=== PATIENT | female | born 1955 | race Caucasian/White ===

== ENCOUNTER 2017-01-20 04:04 | Emergency (ER) | payer MEDICAID ==
[~2017-01-20 04:04] MED LIST: CITA10TA17
--- NOTE | 2017-01-20 04:45 | NUR ---
CALLED FOR TRIAGE; INFORMED "LADY STEPPED OUT"
--- NOTE | 2017-01-20 05:13 | NUR ---
NOT IN LOBBY.
--- NOTE | 2017-01-20 05:29 | NUR ---
STILL NOT IN LOBBY FOR TRIAGE.
== END 2017-01-20 05:30 | disposition left against medical advice (07) ==
LOC: ER 04:05
DX: Z53.21 Procedure and treatment not carried out due to patient leaving prior to being seen by health care provider (principal)

== ENCOUNTER 2017-05-29 05:01 | Emergency (ER) | payer MEDICAID ==
[~2017-05-29] VITALS: Ht 170.2 cm; Wt 79.4 kg
--- NOTE | 2017-05-29 05:08 | NUR ---
CALLED PT NAME X 3 IN WAITING ROOM. NO RESPONSE.
--- NOTE | 2017-05-29 05:25 | NUR ---
CALLED PT NAME IN WR X 3. NO RESPONSE.
--- NOTE | 2017-05-29 05:45 | NUR ---
CALLED PT NAME X3. NO RESPONSE. PT NOTED SLEEPING, STATES SHE WANTS TO REST FOR A FEW MINUTES. RISK AND BENEFITS EXPLAINED X3.
--- NOTE | 2017-05-29 06:00 | NUR ---
TO BED 8 A 62 YO FEMALE PT BIBSELF C/O "VAGINAL PAIN FOR A FEW WEEK, POSION INSIDE ME." DENIES BLEEDING. PATIENT ALERT, WALKING WITH STEADY GAIT. VSS. NAD NOTED. COMFORT MEASURES RENDERED.
--- NOTE | 2017-05-29 06:04 | NUR ---
DR CASE AT BEDSIDE.
--- NOTE | 2017-05-29 06:10 | NUR ---
PATIENT APPEARS ANXIOUS, WITH DELUSIONS.
[2017-05-29] MEDS ORDERED: ZIPRASIDONE MESYLATE 20 MG/VIAL VIAL IM ONE ×2 (06:19→06:30)
[2017-05-29] MEDS ORDERED: WATER FOR INJECTION,STERILE 10 ML ONE (06:20)
[2017-05-29 06:34] LABS: BASOPHILS % (AUTO) 0.7 % (0.0-2.0); EOSINOPHILS # (AUTO) 0.2 /CMM (0.0-0.7); EOSINOPHILS % (AUTO) 4.4 % (0.0-6.0); HEMATOCRIT 43 % (33-45); HEMOGLOBIN 14.5 g/dL (11.5-14.8); LYMPHOCYTES # (AUTO) 1.4 /CMM (0.8-4.8); MEAN CORPUSCULAR HEMOGLOBIN 31 PG (26.0-33.0); MEAN CORPUSCULAR HGB CONC 34 g/dl (31.0-36.0); MEAN CORPUSCULAR VOLUME 91 fL (82-100); MONOCYTES # (AUTO) 0.5 /CMM (0.1-1.30); MONOCYTES % (AUTO) 8.6 % (2.0-12.0); NEUTROPHILS # (AUTO) 3.4 /CMM (1.8-8.9); NEUTROPHILS % (AUTO) 61.3 % (43.0-81.0); PLATELET COUNT (AUTO) 193 /CMM (150-450); RDW COEFFICIENT OF VARIATION 12.7 (11.5-15.0); RED BLOOD CELL COUNT(AUTO) 4.71 MIL/uL (4.0-5.2); WHITE BLOOD COUNT (AUTO) 5.6 K/uL (4.3-11.0)
[2017-05-29 06:34] LABS: APPEARANCE,URINE CLEAR (CLEAR); BILIRUBIN,URINE NEGATIVE (NEGATIVE); BLOOD, URINE TRACE-INTA Ery/uL (NEGATIVE); COLOR,URINE YELLOW (YELLOW); KETONES,URINE NEGATIVE (NEGATIVE); LEUKOCYTE ESTERASE ,URINE NEGATIVE (NEGATIVE); NITRITE, URINE NEGATIVE (NEGATIVE); PROTEIN,URINE NEGATIVE (NEGATIVE); UGLUCOSE 3+ mg/dL (NEGATIVE); UROBILINOGEN,URINE 0.2 EU/dL (0.2)
[2017-05-29] MEDS ORDERED: ESCITALOPRAM OXALATE (10 MG) 10 MG TABLET ONE (06:35)
[2017-05-29 06:36] LABS: BACTERIA,URINE Few /HPF (None Seen); WBC,URINE 0-2 /HPF (0-3)
--- NOTE | 2017-05-29 06:42 | NUR ---
MEDICATED PATIENT ORDERED BY DR CASE.
[2017-05-29 07:00] LABS: ALANINE AMINOTRANSFERASE 35 U/L (12-78); ALBUMIN 3.8 g/dL (3.4-5.0); ALKALINE PHOSPHATASE 88 U/L (46-116); ASPARTATE AMINOTRANSFERASE 17 U/L (15-37); BILIRUBIN,DIRECT 0.1 mg/dL (0.0-0.2); BILIRUBIN,TOTAL 0.5 mg/dL (0.2-1.0); CALCIUM, SERUM 8.4 mg/dL (8.5-10.1); CARBON DIOXIDE 30 mmol/L (21-32); CHLORIDE 101 mmol/L (98-107); CREATININE 0.9 mg/dL (0.6-1.3); POTASSIUM 3.8 mmol/L (3.5-5.1); SODIUM SERUM 139 mmol/L (136-145); TOTAL PROTEIN, SERUM 7.6 g/dL (6.4-8.2); UREA NITROGEN, BLOOD 12 mg/dL (7-18)
[2017-05-29] MEDS ORDERED: ESCITALOPRAM OXALATE (10 MG) 10 MG TABLET PO ONE (07:00)
[2017-05-29 07:04] LABS: ACETAMINOPHEN 0 ug/ml (10-30); GLUCOSE 421 mg/dL (74-106); SALICYLATE 1.6 mg/dL (2.8-20.0)
[2017-05-29 07:05] LABS: ALCOHOL, BLOOD < 3 mg/dL (0-0)
[2017-05-29] MEDS ORDERED: INSULIN REGULAR, HUMAN 100 UNIT/ML 10 ML VIAL ONE (07:13)
--- NOTE | 2017-05-29 07:17 | NUR ---
WITNESSED/VERIFIED WITH RN DANIELLA MEDICATION REGULAR INSULIN 8UNITS IVP
[2017-05-29] MEDS ORDERED: INSULIN REGULAR, HUMAN 100 UNIT/ML 10 ML VIAL IV ONE ×2 (07:30→09:30)
[2017-05-29] MEDS ORDERED: IV NS 0.9% 1,000 ML BAG IV ONE (07:30)
[2017-05-29] MEDS ORDERED: FLUCONAZOLE (100 MG) 100 MG TABLET PO ONE (07:30)
--- NOTE | 2017-05-29 08:08 | NUR ---
ARABELLA ETA 60
--- NOTE | 2017-05-29 08:15 | NUR ---
PROVIDED WITH DIABETIC MEAL TRAY AT THIS TIME. NAD NOTED. AMBULATORY WITH STEADY GAIT.
[2017-05-29] MEDS ORDERED: FLUCONAZOLE (100 MG) 100 MG TABLET ONE (08:20)
--- NOTE | 2017-05-29 09:18 | NUR ---
PINKY AT BEDSIDE
--- NOTE | 2017-05-29 09:22 | NUR ---
RECHECK DUN=458. MD NOTIFIED. AWAITING NEW ORDER.
--- NOTE | 2017-05-29 10:27 | NUR ---
IV removed. Catheter intact and site benign. Pressure and 4x4 applied to site. No bleeding noted.
--- NOTE | 2017-05-29 10:50 | NUR ---
Patient discharged to home in stable condition. Written and verbal after care instructions given. Patient verbalizes understanding of instruction. RECHECK HDK=551. THOROUGH BLOOD SUGAR MANAGEMENT INFORMATION GIVEN INCLUDING PROPER USE OF PRESCRIBED METFORMIN.
[2017-05-29 11:26] VITALS: BP 153/88
== END 2017-05-29 10:50 | disposition home or self-care (01) ==
LOC: ER 05:02
DX: F22 Delusional disorders (principal); E11.65 Type 2 diabetes mellitus with hyperglycemia; B37.3 Candidiasis of vulva and vagina; F20.9 Schizophrenia, unspecified; F17.200 Nicotine dependence, unspecified, uncomplicated; Z91.19 Patient's noncompliance with other medical treatment and regimen; Z88.8 Allergy status to other drugs, medicaments and biological substances; Z59.0 Homelessness
CPT/HCPCS: 36415; 71010; 80048; 80076; 80305; 80329; 81001; 82962 ×3; 85025; 96361; 96372; 96374; 96376; 99285; A4606; G0480 ×2; J1815; J3486; J7030; Z7610; 81000-TC

== ENCOUNTER 2017-07-20 15:59 | Emergency (ER) | payer MEDICAID ==
[~2017-07-20] VITALS: Ht 167.6 cm; Wt 77.1 kg
--- NOTE | 2017-07-20 15:59 | NUR ---
ABRASION TO THE FACE AND BILATERAL KNEE MORE ON THE LEFT S/P GLF X 3 DAYS
[2017-07-20] MEDS ORDERED: IBUPROFEN 600 MG TABLET PO ONE ×2 (16:22→16:30)
[2017-07-20] MEDS ORDERED: TDAP [DIPH/PERTUSSIS/TET] 0.5 ML VIAL IM ONE ×2 (16:23→16:30)
--- NOTE | 2017-07-20 16:27 | NUR ---
PT TAKEN TO CT
--- NOTE | 2017-07-20 17:12 | NUR ---
Patient discharged to home in stable condition. Written and verbal after care instructions given. Patient verbalizes understanding of instruction.
[2017-07-20 17:14] VITALS: BP 140/87
== END 2017-07-20 17:14 | disposition home or self-care (01) ==
LOC: ER 16:01
DX: S00.83XA Contusion of other part of head, initial encounter (principal); S80.02XA Contusion of left knee, initial encounter; S00.31XA Abrasion of nose, initial encounter; F20.9 Schizophrenia, unspecified; E11.9 Type 2 diabetes mellitus without complications; F17.200 Nicotine dependence, unspecified, uncomplicated; Z59.0 Homelessness; Z88.8 Allergy status to other drugs, medicaments and biological substances; W01.10XA Fall on same level from slipping, tripping and stumbling with subsequent striking against unspecified object, initial encounter; Y93.89 Activity, other specified; Y92.89 Other specified places as the place of occurrence of the external cause; Y99.8 Other external cause status
CPT/HCPCS: 70486; 73564; 90471; 90715; 99284; A4606; Z7610

== ENCOUNTER 2018-07-12 00:46 | Emergency (ER) | payer BC, MEDICAID ==
[~2018-07-12] VITALS: Ht 170.2 cm; Wt 68.0 kg
--- NOTE | 2018-07-12 01:00 | NUR ---
PT BIBSELF FROM STREETS COMPLAINING OF CHRONIC BILATERAL LOWER EXTREMITY PAIN. PT DENIES RECENT TRAUMA. NOTED EDEMA BILATERAL LOWER EXTREMITIES, PT STATES DOES NOT DIFFER. PT AAOX4. RESPIRATIONS EVEN AND UNLABORED. SKIN WARM AND INTACT. NO ACUTE DISTRESS NOTED AT THIS TIME. PT PLACED IN GOWN AND ON MONITOR.
--- NOTE | 2018-07-12 01:25 | NUR ---
LAB AT BEDSIDE FOR BLOOD DRAW
[2018-07-12] MEDS ORDERED: OLANZAPINE 5 MG TABLET ONE (01:28)
[2018-07-12] MEDS ORDERED: oxyCODONE/APAP (5/325 MG) 1 UDTAB TABLET ONE (01:28)
[2018-07-12] MEDS ORDERED: LORAZEPAM 1 MG TABLET ONE (01:28)
[2018-07-12] MEDS: LORAZEPAM 1 MG TABLET PO ONE (01:35)
[2018-07-12] MEDS: oxyCODONE/APAP (5/325 MG) 1 UDTAB TABLET PO ONE (01:36)
[2018-07-12] MEDS: OLANZAPINE 5 MG TABLET PO ONE (01:36)
[2018-07-12 01:39] LABS: BASOPHILS % (AUTO) 0.4 % (0.0-2.0); HEMATOCRIT 36 % (33-45); HEMOGLOBIN 11.6 g/dL (11.5-14.8); LYMPHOCYTES # (AUTO) 0.9 /CMM (0.8-4.8); LYMPHOCYTES % (AUTO) 11.1 % (20.0-44.0); MEAN CORPUSCULAR HGB CONC 32 g/dl (31.0-36.0); MEAN CORPUSCULAR VOLUME 84 fL (82-100); MONOCYTES # (AUTO) 0.4 /CMM (0.1-1.30); MONOCYTES % (AUTO) 5.5 % (2.0-12.0); NEUTROPHILS # (AUTO) 6.2 /CMM (1.8-8.9); PLATELET COUNT (AUTO) 321 /CMM (150-450); RDW COEFFICIENT OF VARIATION 17.2 (11.5-15.0); RED BLOOD CELL COUNT(AUTO) 4.27 MIL/uL (4.0-5.2); WHITE BLOOD COUNT (AUTO) 7.7 K/uL (4.3-11.0)
--- NOTE | 2018-07-12 01:50 | NUR ---
URINE COLLECTED. CALLED LAB FOR TECHNICAL SUPPORT AGENT
[2018-07-12 01:52] LABS: CALCIUM, SERUM 8.5 mg/dL (8.5-10.1); CARBON DIOXIDE 30 mmol/L (21-32); CHLORIDE 98 mmol/L (98-107); CREATININE 0.7 mg/dL (0.6-1.3); GLUCOSE 245 mg/dL (74-106); LIPASE 283 U/L (73-393); POTASSIUM 3.3 mmol/L (3.5-5.1); SODIUM SERUM 134 mmol/L (136-145); UREA NITROGEN, BLOOD 13 mg/dL (7-18)
[2018-07-12 01:53] LABS: ALCOHOL, BLOOD < 3 mg/dL (0-0)
[2018-07-12 01:55] LABS: INR 0.97 (0.87-1.13)
--- NOTE | 2018-07-12 01:55 | NUR ---
RADIOLOGY AT BEDSIDE FOR XRAY
[2018-07-12 01:59] LABS: TROPONIN I < 0.017 ng/mL (0.00-0.056)
[2018-07-12 02:05] LABS: ALANINE AMINOTRANSFERASE 13 U/L (12-78); ALBUMIN 3.1 g/dL (3.4-5.0); ALKALINE PHOSPHATASE 60 U/L (46-116); ASPARTATE AMINOTRANSFERASE 17 U/L (15-37); B-TYPE NATRIURETIC PEPTIDE 137 PG/ML (0-125); BILIRUBIN,DIRECT 0.1 mg/dL (0.0-0.2); BILIRUBIN,TOTAL 0.4 mg/dL (0.2-1.0); THYROID STIMULATING HORMONE 3.151 uIU/mL (0.358-3.74); TOTAL PROTEIN, SERUM 8.2 g/dL (6.4-8.2)
[2018-07-12 02:16] LABS: BILIRUBIN,URINE NEGATIVE (NEGATIVE); BLOOD, URINE NEGATIVE Ery/uL (NEGATIVE); COLOR,URINE YELLOW (YELLOW); KETONES,URINE NEGATIVE (NEGATIVE); LEUKOCYTE ESTERASE ,URINE NEGATIVE (NEGATIVE); NITRITE, URINE NEGATIVE (NEGATIVE); PH,URINE 7.5 (5.0-8.0); PROTEIN,URINE NEGATIVE (NEGATIVE); UGLUCOSE 2+ mg/dL (NEGATIVE); UROBILINOGEN,URINE 0.2 EU/dL (0.2)
[2018-07-12 02:17] LABS: APPEARANCE,URINE HAZY (CLEAR)
--- NOTE | 2018-07-12 02:17 | NUR ---
ULTRASOUND AT BEDSIDE
[2018-07-12 02:26] LABS: BACTERIA,URINE None seen /HPF (None Seen); RBC,URINE 0-2 /HPF (0-2); SQUAMOUS EPITHELIAL CELL,UR Few /HPF (None Seen); WBC,URINE 0-2 /HPF (0-3)
--- NOTE | 2018-07-12 02:43 | NUR ---
PT ABLE TO AMBULATE TO RESTROOM WITH ASSISTANCE
--- NOTE | 2018-07-12 03:26 | NUR ---
Patient discharged to home in stable condition. Written and verbal after care instructions given. Patient verbalizes understanding of instruction. Pt ambulatory with a steady gait
[2018-07-12 03:27] VITALS: BP 157/72
== END 2018-07-12 03:28 | disposition home or self-care (01) ==
LOC: ER 00:46
DX: G89.29 Other chronic pain (principal); M79.662 Pain in left lower leg; M79.661 Pain in right lower leg; R60.9 Edema, unspecified; F20.9 Schizophrenia, unspecified; E11.9 Type 2 diabetes mellitus without complications; F17.200 Nicotine dependence, unspecified, uncomplicated; Z88.8 Allergy status to other drugs, medicaments and biological substances; Z59.0 Homelessness
CPT/HCPCS: 36415; 71045; 73590 ×2; 73620 ×2; 80048; 80076; 80305; 81001; 83690; 83880; 84443; 84484; 85025; 85730; 93005; 93970; 99285; 99406; A4606; G0480; Z7610; 81000-TC

== ENCOUNTER 2018-09-24 05:44 | Emergency (ER) | payer BC ==
[~2018-09-24] VITALS: Ht 170.2 cm; Wt 75.7 kg
--- NOTE | 2018-09-24 05:50 | NUR ---
PT BIBSELF FROM STREETS C/O GENERALIZED PAIN X5 DAYS. PT DENIES TRAUMA. PT AAOX3. RESPIRATIONS EVEN AND UNLABORED. VITAL SIGNS STABLE. PT AMBULATORY TO ER BED 13. WILL CONTINUE TO MONITOR.
[2018-09-24] MEDS ORDERED: HYDROCODONE/APAP 5/325MG 1 EACH TABLET ONE (06:25)
[2018-09-24] MEDS ORDERED: IBUPROFEN 600 MG TABLET PO ONE ×2 (06:30→07:00)
[2018-09-24] MEDS ORDERED: HYDROCODONE/APAP 5/325MG 1 EACH TABLET PO ONE (06:30)
--- NOTE | 2018-09-24 06:32 | NUR ---
PER VERBAL MD ORDER, ADMINISTERED IBUPROFEN 600MG PO X1 NOW
[2018-09-24 06:42] VITALS: BP 148/82
== END 2018-09-24 06:42 | disposition home or self-care (01) ==
LOC: ER 05:46
DX: G89.29 Other chronic pain (principal); R60.0 Localized edema; F20.9 Schizophrenia, unspecified; E11.9 Type 2 diabetes mellitus without complications; F17.200 Nicotine dependence, unspecified, uncomplicated; Z59.0 Homelessness; Z88.8 Allergy status to other drugs, medicaments and biological substances; Z79.899 Other long term (current) drug therapy
CPT/HCPCS: A4606; Z7610

== ENCOUNTER 2018-10-15 05:01 | Emergency (ER) | payer BC ==
[~2018-10-15] VITALS: Ht 167.6 cm; Wt 75.7 kg
[2018-10-15 06:12] VITALS: BP 165/78
== END 2018-10-15 07:10 | disposition home or self-care (01) ==
LOC: ER 05:02
DX: R05 Cough (principal); R09.81 Nasal congestion; R09.3 Abnormal sputum; E11.9 Type 2 diabetes mellitus without complications; F20.9 Schizophrenia, unspecified; F17.200 Nicotine dependence, unspecified, uncomplicated; Z88.8 Allergy status to other drugs, medicaments and biological substances; Z59.0 Homelessness; Z79.899 Other long term (current) drug therapy
CPT/HCPCS: 99283; A4606; Z7610

== ENCOUNTER 2019-02-02 13:48 | Emergency (ER) | payer BC ==
[~2019-02-02] VITALS: Ht 165.1 cm; Wt 65.8 kg
[2019-02-02] MEDS ORDERED: DOCU-141 PO (14:18)
[2019-02-02] MEDS ORDERED: DULO60CA45 PO (14:18)
[2019-02-02] MEDS ORDERED: HYDR-4384 PO (14:18)
[2019-02-02] MEDS ORDERED: ACET-868 PO (14:18)
[2019-02-02] MEDS ORDERED: BISA5TAB10 PO (14:18)
--- NOTE | 2019-02-02 14:30 | NUR ---
patient presented to the ER from [facility] for psych eval, visual hallucination. On room air, breathing evenly and unlabored. kept comfortable, will continue to monitor accordingly.
--- NOTE | 2019-02-02 14:41 | NUR ---
urine collected and sent to lab.
[2019-02-02 14:48] LABS: BASOPHILS # (AUTO) 0.1 /CMM (0.0-0.2); BASOPHILS % (AUTO) 1.1 % (0.0-2.0); EOSINOPHILS % (AUTO) 2.4 % (0.0-6.0); HEMATOCRIT 42 % (33-45); LYMPHOCYTES % (AUTO) 16.8 % (20.0-44.0); MEAN CORPUSCULAR HGB CONC 34 g/dl (31.0-36.0); MEAN CORPUSCULAR VOLUME 86 fL (82-100); MONOCYTES # (AUTO) 0.5 /CMM (0.1-1.30); MONOCYTES % (AUTO) 7.7 % (2.0-12.0); NEUTROPHILS # (AUTO) 4.4 /CMM (1.8-8.9); PLATELET COUNT (AUTO) 245 /CMM (150-450); RED BLOOD CELL COUNT(AUTO) 4.86 MIL/uL (4.0-5.2); WHITE BLOOD COUNT (AUTO) 6.1 K/uL (4.3-11.0)
[2019-02-02 14:59] LABS: ALANINE AMINOTRANSFERASE 19 U/L (12-78); ALCOHOL, BLOOD < 3 mg/dL (0-0); ALKALINE PHOSPHATASE 85 U/L (46-116); ASPARTATE AMINOTRANSFERASE 18 U/L (15-37); BILIRUBIN,DIRECT 0.1 mg/dL (0.0-0.2); BILIRUBIN,TOTAL 0.4 mg/dL (0.2-1.0); CALCIUM, SERUM 8.8 mg/dL (8.5-10.1); CARBON DIOXIDE 33 mmol/L (21-32); CHLORIDE 102 mmol/L (98-107); CREATININE 0.8 mg/dL (0.6-1.3); GLUCOSE 166 mg/dL (74-106); POTASSIUM 4.1 mmol/L (3.5-5.1); SODIUM SERUM 141 mmol/L (136-145); TOTAL PROTEIN, SERUM 8.4 g/dL (6.4-8.2); UREA NITROGEN, BLOOD 15 mg/dL (7-18)
[2019-02-02 15:09] LABS: ACETAMINOPHEN < 2 ug/ml (10-30); SALICYLATE < 2.8 mg/dL (2.8-20.0)
[2019-02-02 15:11] LABS: APPEARANCE,URINE Clear (CLEAR); BILIRUBIN,URINE Negative (NEGATIVE); BLOOD, URINE Trace-intact Ery/uL (NEGATIVE); COLOR,URINE Yellow (YELLOW); KETONES,URINE Negative (NEGATIVE); LEUKOCYTE ESTERASE ,URINE Negative (NEGATIVE); NITRITE, URINE Negative (NEGATIVE); PH,URINE 5.5 (5.0-8.0); PROTEIN,URINE 30 mg/dl (NEGATIVE); UGLUCOSE Negative (NEGATIVE); UROBILINOGEN,URINE 0.2 EU/dL (0.2)
[2019-02-02 15:24] LABS: BACTERIA,URINE None seen /HPF (None Seen); SQUAMOUS EPITHELIAL CELL,UR Few /HPF (None Seen); WBC,URINE 0-2 /HPF (0-3)
--- NOTE | 2019-02-02 15:39 | NUR ---
ADJUNCT ART HISTORY INSTRUCTOR ALEX ETA 1 HR
--- NOTE | 2019-02-02 17:10 | NUR ---
ETA [phone] [facility] [id number]
--- NOTE | 2019-02-02 17:38 | NUR ---
called [facility]o espinoza and spoke to Nely BLACKMAN and report given.
[2019-02-02 17:54] VITALS: BP 116/82
--- NOTE | 2019-02-02 17:57 | NUR ---
patient pickep up via ambulance going to [facility] [place]. Per crisis team, patient does not meet criteria for admission. On room air, in no apparent distress noted. denies any pain at this time.
== END 2019-02-02 17:55 ==
LOC: ER 13:50
DX: R44.1 Visual hallucinations (principal); F60.3 Borderline personality disorder; E11.9 Type 2 diabetes mellitus without complications; F17.200 Nicotine dependence, unspecified, uncomplicated; Z88.8 Allergy status to other drugs, medicaments and biological substances
CPT/HCPCS: 36415; 80048; 80076; 80305; 80307; 80329; 81001; 85025; 99285; G0480; 81000-TC

== ENCOUNTER 2020-03-26 00:07 | Emergency (ER) | payer BC, MEDICAID ==
[~2020-03-26] VITALS: Ht 170.2 cm; Wt 91.6 kg
[~2020-03-26 00:07] MED LIST changes: +ACET-868 PO; +BISA5TAB10 PO; -CITA10TA17; +DOCU-141 PO; +DULO60CA45 PO; +HYDR-4384 PO
--- NOTE | 2020-03-26 00:40 | NUR ---
BIBS FOR C/O CHRONIC BILATERAL GROIN PAIN TO ER BED 7 AWAITING MD NAVA
[2020-03-26] MEDS ORDERED: IBUPROFEN 600 MG TABLET PO ONE ×2 (01:16→01:30)
[2020-03-26 01:38] VITALS: BP 143/83
--- NOTE | 2020-03-26 01:38 | NUR ---
Patient discharged to home in stable condition. Written and verbal after care instructions given. Patient verbalizes understanding of instruction.
== END 2020-03-26 01:39 | disposition home or self-care (01) ==
LOC: ER 00:12
DX: G89.29 Other chronic pain (principal); R10.31 Right lower quadrant pain; R10.32 Left lower quadrant pain; E11.9 Type 2 diabetes mellitus without complications; F20.9 Schizophrenia, unspecified; F17.200 Nicotine dependence, unspecified, uncomplicated; Z88.8 Allergy status to other drugs, medicaments and biological substances; Z79.899 Other long term (current) drug therapy

== ENCOUNTER 2020-05-01 03:23 | Emergency (ER) | payer MEDICAID ==
[~2020-05-01] VITALS: Ht 170.2 cm; Wt 91.6 kg
--- NOTE | 2020-05-01 04:15 | NUR ---
BIBS FOR C/O GENERALIZED BODY PAIN X 1WK. PT DENIED ANY FALL OR TRAUMA. REPORTED SHE' BEEN GIVEN "WRONG MEDICATIONS FOR PAIN.". DENIED SOB, DIZZINESS. PT WAS PLACED ON A MONITOR. VSS. WILL CONT TO MONITOR,
[2020-05-01] MEDS ORDERED: ACETAMINOPHEN ES 500 MG TABLET ONE (04:36)
--- NOTE | 2020-05-01 04:51 | NUR ---
BLOOD WAS DRAWN
[2020-05-01 04:55] LABS: BASOPHILS # (AUTO) 0.1 /CMM (0.0-0.2); BASOPHILS % (AUTO) 0.7 % (0.0-2.0); EOSINOPHILS % (AUTO) 2.6 % (0.0-6.0); HEMATOCRIT 37 % (33-45); HEMOGLOBIN 12.1 g/dL (11.5-14.8); LYMPHOCYTES # (AUTO) 1.1 /CMM (0.8-4.8); LYMPHOCYTES % (AUTO) 16.1 % (20.0-44.0); MEAN CORPUSCULAR HGB CONC 33 g/dl (31.0-36.0); MEAN CORPUSCULAR VOLUME 88 fL (82-100); MONOCYTES # (AUTO) 0.7 /CMM (0.1-1.30); MONOCYTES % (AUTO) 9.6 % (2.0-12.0); NEUTROPHILS # (AUTO) 5.1 /CMM (1.8-8.9); PLATELET COUNT (AUTO) 228 /CMM (150-450); WHITE BLOOD COUNT (AUTO) 7.1 K/uL (4.3-11.0)
[2020-05-01 04:57] LABS: APPEARANCE,URINE Clear (CLEAR); BILIRUBIN,URINE Negative (NEGATIVE); BLOOD, URINE Small Ery/uL (NEGATIVE); COLOR,URINE Yellow (YELLOW); KETONES,URINE Negative (NEGATIVE); LEUKOCYTE ESTERASE ,URINE Trace (NEGATIVE); NITRITE, URINE Negative (NEGATIVE); PROTEIN,URINE 30 mg/dl (NEGATIVE); UGLUCOSE Negative (NEGATIVE); UROBILINOGEN,URINE 0.2 EU/dL (0.2)
[2020-05-01] MEDS ORDERED: ACETAMINOPHEN ES 500 MG TABLET PO ONE (05:00)
[2020-05-01 05:04] LABS: CALCIUM, SERUM 8.5 mg/dL (8.5-10.1); CREATININE 0.8 mg/dL (0.6-1.3); POTASSIUM 3.8 mmol/L (3.5-5.1)
[2020-05-01 05:13] LABS: BACTERIA,URINE None seen /HPF (None Seen); RBC,URINE 0-2 /HPF (0-2); SQUAMOUS EPITHELIAL CELL,UR Few /HPF (None Seen); WBC,URINE 0-2 /HPF (0-3)
--- NOTE | 2020-05-01 05:51 | NUR ---
pt is medically stable for d/c. Patient discharged to home in stable condition. Written and verbal after care instructions given. Patient verbalizes understanding of instruction.
[2020-05-01 05:52] VITALS: BP 132/64
== END 2020-05-01 05:53 | disposition home or self-care (01) ==
LOC: ER 03:24
DX: G89.29 Other chronic pain (principal); E11.9 Type 2 diabetes mellitus without complications; Z88.8 Allergy status to other drugs, medicaments and biological substances; Z79.899 Other long term (current) drug therapy
CPT/HCPCS: 36415; 71045-TC; 80048-TC; 81000-TC; 85025-TC

== ENCOUNTER 2020-12-02 11:02 | Emergency (ER) | payer MEDICAID ==
[~2020-12-02] VITALS: Ht 170.2 cm; Wt 68.9 kg
--- NOTE | 2020-12-02 11:02 | NUR ---
PT BIB RA 878 FROM A [facility], C/O WORSENING BILATERAL LEG PAIN. PT IS AAOX4, NOT IN RESPIRATORY DISTRESS, V/S STABLE, KEPT RESTED AND COMFORTABLE, WILL CONTINUE TO MONITOR.
--- NOTE | 2020-12-02 11:08 | NUR ---
AT BEDSIDE FOR EVAL.
--- NOTE | 2020-12-02 11:16 | NUR ---
URINAL GIVEN PT UNABLE TO PROVIDE URINE SPECIMEN THIS TIME.
--- NOTE | 2020-12-02 11:23 | NUR ---
ER PHLEB AT BEDSIDE FOR BLOOD DRAW
[2020-12-02 11:33] LABS: BASOPHILS % (AUTO) 0.9 % (0.0-2.0); EOSINOPHILS % (AUTO) 3.6 % (0.0-6.0); HEMATOCRIT 36 % (33-45); HEMOGLOBIN 11.7 g/dL (11.5-14.8); LYMPHOCYTES # (AUTO) 0.7 /CMM (0.8-4.8); LYMPHOCYTES % (AUTO) 15.2 % (20.0-44.0); MEAN CORPUSCULAR HGB CONC 32 g/dl (31.0-36.0); MEAN CORPUSCULAR VOLUME 84 fL (82-100); MONOCYTES # (AUTO) 0.3 /CMM (0.1-1.30); MONOCYTES % (AUTO) 7.7 % (2.0-12.0); NEUTROPHILS # (AUTO) 3.2 /CMM (1.8-8.9); NEUTROPHILS % (AUTO) 72.6 % (43.0-81.0); PLATELET COUNT (AUTO) 389 /CMM (150-450); RED BLOOD CELL COUNT(AUTO) 4.32 MIL/uL (4.0-5.2); WHITE BLOOD COUNT (AUTO) 4.5 K/uL (4.3-11.0)
--- NOTE | 2020-12-02 11:34 | NUR ---
called rae cobos left msg.
[2020-12-02 11:53] LABS: ACETAMINOPHEN < 10 ug/ml (10-30); ALANINE AMINOTRANSFERASE 15 U/L (12-78); ALCOHOL, BLOOD < 3 mg/dL (0-0); ALKALINE PHOSPHATASE 50 U/L (46-116); ASPARTATE AMINOTRANSFERASE 18 U/L (15-37); BILIRUBIN,DIRECT 0.1 mg/dL (0.0-0.2); BILIRUBIN,TOTAL 0.4 mg/dL (0.2-1.0); CALCIUM, SERUM 8.3 mg/dL (8.5-10.1); CARBON DIOXIDE 27 mmol/L (21-32); CHLORIDE 101 mmol/L (98-107); CREATININE 0.7 mg/dL (0.6-1.3); GLUCOSE 183 mg/dL (74-106); POTASSIUM 4.1 mmol/L (3.5-5.1); SODIUM SERUM 138 mmol/L (136-145); TOTAL PROTEIN, SERUM 8.3 g/dL (6.4-8.2); UREA NITROGEN, BLOOD 16 mg/dL (7-18)
--- NOTE | 2020-12-02 12:02 | NUR ---
move sheet submitted and called for bed. ms
--- NOTE | 2020-12-02 12:18 | NUR ---
Got bed 324-2
--- NOTE | 2020-12-02 14:24 | NUR ---
RECEIVED RESULT FROM MAIN LAB: RAPID COVID NEGATIVE
[2020-12-02 15:07] LABS: BILIRUBIN,URINE Negative (NEGATIVE); COLOR,URINE YELLOW (YELLOW); LEUKOCYTE ESTERASE ,URINE Trace (NEGATIVE); NITRITE, URINE Negative (NEGATIVE); PH,URINE 7.5 (5.0-8.0); PROTEIN,URINE Negative (NEGATIVE); UGLUCOSE Negative (NEGATIVE)
[2020-12-02 15:19] LABS: BACTERIA,URINE Few /HPF (None Seen)
--- NOTE | 2020-12-02 15:41 | NUR ---
"SS Consult: SS Consult requested for inability to care for self. This pt. is a 65-year old female seeking medical [place]. for bilateral leg & elbow pain, per EMR. DALI met with pt. at bedside. The pt. is alert & oriented x 4 and appears unkempt. The pt. has tangential speech The pt. appears to have arthritis in hands and toes. DALI assessed pt.s living situation. Per pt. she was last residing at [facility] [[address] [facility] [address]; [phone]]. Per pt. she is always in constant pain. Pt. stated it is hard for her to move due to the pain. Pt. stated the last time she showered was a few days ago in the hotel and it was a difficult task to complete due to pain. DALI assessed pt.s support system. Pt. stated that she has friend and family but refused to provide point of contact because people have failed me in the past. Per pt. she receives about $1,040 a month from [employer]. DALI explored pt.s mental health Hx. Per pt. he was diagnosed with Borderline Personality Disorder in the past. Per pt. she was prescribed Paxil, and Xanax. However, she does not currently take any medication. Per pt. she has cataracts in both her eyes and has haziness with her vision. The pt. denies SI/HI & denies hallucinations. Plan: DALI discussed pt. with MD. Per MD, pt. will be admitted medically for care & placement. DALI requested medical staff to have pt. sign homeless waiver. DALI provided the following HOMELESS & SENIOR resources to pt. and pt. accepted them: Substance Abuse resources provided included: [facility] Substance Abuse Self-Helpline (SAS) ; CRI -HELP [address] [facility]. [place] [address] ; [facility] [address] [facility] [address] ; [facility] Rehabilitation [facility] [address] [facility] [address] ; [facility] [address] [facility] [address] ; [facility] [address] [facility] [address] ; [facility] [address] [phone] ; [facility] Substance Abuse Helpline(SAS)-[facility] ; [facility] ; [facility] [place]; [facility] [place]; Cri-Help [place]; I-ADARP Inter Agency Drug Abuse Recovery Keshav Cordero; [facility]; [place]; [facility]; [facility], [facility]. [facility]; Alcoholics Anonymous -SFV; Re-Xjuj-Fdxbuka ; Marijuana Anonymous -SFV; Narcotics Anonymous www.na.org; Year-round shelters: [place] [facility] [address] [place], [place] [address] ; [employer] [facility] [address] [place] [address]; [place] [facility] Tppypby[address] [facility] [phone] Winter Shelters: Dave Morel Provider: [facility] [place] Address: [address] [place], [address] # of Beds: 47 Population Served: [facility] 6 | [facility] Gisel Murry Maria Teresa Provider: Home at Last Address: [address], [address] # of Beds: 66 Population Served: Hanna Maierise [place] Provider: First to Serve Address: [address] [facility], [address] # of Beds: 56 Population Served: Hanna [place] Provider: /[facility]. [facility] Address: [address] [facility], [address] # of Beds: 49 Population Served: Coed SPA 8 | [place] Herbster Provider: First to Serve Address: [address] [place], [address] # of Beds: 37 Population Served: Coed Hygiene: [facility]: [address] [place] ; [place] [facility] [address] [facility] [place] ; [facility] [address] [place] . Food Resources: [place] Food Pantry at [facility]- [address] [facility]; Meet Each Need with Dignity ([facility]) [address] [facility]; [facility] Food Pantry [address] [facility]; [facility] 8552 [facility]. Mental Health resources provided: [facility] [address] [place], [place] [id number] ; [facility] [address] [facility] [address], [place], [place] [id number] ; Nancy Etta [facility] [address], [place] [phone] ; [facility] [address] [place], [place] [id number] Healthcare Clinics: [facility] [address] [facility], [address] [place]. [place] ; [facility] [address] [facility] [address] [place] [address]; [facility] [address] [facility]. [place] [phone] ADULT DAY HEALTH CARE CARE CENTERS: Private pay or Medi-acmc healthcare system funded adult day care [place] Adult Day Health Care [facility] , [facility] , [facility] Adult Care Center , [facility] Adult Day Health Care , [facility] Day Health Care , [facility] Adult [facility] Center , [facility] ONE Generation [place] , Keshav Cordero [facility] , [place] EYESIGHT DISORDER RESOURCES: [facility] www.[facility] health community memorial [email or web address] MEALS AND FOOD PROGRAMS: [place] Meals on Wheels [phone] [place] Meals on Wheels [phone] [facility] [phone] [place] to the Homebound [phone] [place] to the Homebound [phone] [facility] to the Homebound [phone] [facility] to the Homebound [phone] [facility] HospitalKeshav [phone] [facility] [phone] ONE [facility] [phone] [facility] [phone] [facility] [phone] Meals on Wheels [phone] For all ages: $6.85/ meal w side. Delivered M-F from 10 am-1pm. Application and payment is done over the phone. Frozen meals available for weekends. Emergency Food [facility] [phone] [facility] Chancellor [phone] [facility] [phone] [facility]- Brown bag lunches [phone] [facility] [phone] MEAL/GROCERY DELIVERY PROGRAMS: [facility] [phone]- [facility] [phone]- [facility] Magic Kitchen [phone] Moms Meals [phone] (ask Rehman for Discount Select grocery stores may provide delivery. MEDICAL INSURANCE SUPPORT SERVICES: Center for Health Care Rights [phone] Health Insurance Counseling/Advocacy Programs (HICAP)-Must have Medicare. Offers counseling for Medi-Radha eligibility [phone] [facility] Chancellor [phone] www.[facility].ca.gov Medicare [phone] www.socialsecurity.org Social Security [phone] SENIOR ACTIVITY PROGRAMS: *Contact a local senior center, adult school, recreation facility or community college for education, fitness, recreation, and social programs. Aquatic Therapy and Adapted Exercise programs through [facility] [phone] Encore at [facility] [phone] www.[facility]/encore U- Senior Friends [phone] [facility] Senior Programs [phone] www.oasisnet.org Suddenly 65 www.[email or web address] SENIOR CENTERS: [facility] [phone] [facility] Center[facility]hav [phone] [facility] [phone] [facility] [phone] [facility] [phone] [facility] [phone] [facility] [phone] [facility] [phone] One Generation, [place] [facility] [phone] [facility] [phone] [facility] [phone] [facility] [phone] [facility] [place] [phone] TRANSPORTATION: Local [facility] may have applications for transportation programs and additional resources. ACCESS Services [phone] Transportation for seniors and disabled persons 7 days a week requiring 254 hr. advance reservation. Must apply and register for program elayne eligible. CITY RIDE [phone] or [phone] Transportation for seniors and persons with ADA card/metro disabled card in the [facility]. M-F only. Must register for services. ONE GENERATION [phone] Serves 65 years + in conjunction with Neurae program. Must be registered with both programs. A to B Transport [phone] Provides wheelchair/gurney van service. Adult Medical Transport [phone] Accepts Medi-radha with prior authorization. Care Van [phone] Provides wheelchair Transport. [facility] Wide Transportation [phone] Provides gurney service [facility] [phone] Gurney Transport. [facility] Transportation [phone] wheelchair & gurney transport [facility] Transportation [phone] wheelchair & gurney transport [place] Non-Emergency Transport [phone] wheelchair & gurney transport [facility] Living [place] [phone] Short Term Transportation primarily for adults with disabilities on social security income. Nominal fee may apply and a reservation is required. [employer] [phone] or [phone] [place] Sugar Free Mediai [phone] [place] [address] Services -[phone] For additional programs & services."
--- NOTE | 2020-12-02 16:04 | NUR ---
CALL FROM BUSHRA BLACKMAN WITH TX INFO: REPORT TO DIPIKA AT [phone] X [phone]
--- NOTE | 2020-12-02 16:35 | NUR ---
CALLED [facility] [phone] BUT NEED TO CALL THE ER TRANSPORT LINE [phone] LEFT MSG TO CALL US BACK. VM SAID CALL BACK WITHIN 15 MINS.
--- NOTE | 2020-12-02 16:43 | NUR ---
RAMONA CALLED BACK FROM ER TRANSFER LINE. CM NEEDS TO CALL [phone] SPEAK WITH [facility] [phone] [facility] X [phone]. INFORM THAT THIS IS A SNF PLACEMENT. [facility] PT IS IN THE ER.
--- NOTE | 2020-12-02 17:35 | NUR ---
CALLED TRANSPORT [phone] JUANITA CAIN IS [phone]
--- NOTE | 2020-12-02 17:36 | NUR ---
[facility] FURNITURE MOVER DRIVER [phone] [facility] [address] [id number] IS THE AUTH NUMBER GIVEN TO SENA HUERTA [phone]
--- NOTE | 2020-12-02 17:40 | NUR ---
Note undone in EDM - 12/02/20 at 1745 by [place] UM NOTE Case DW patient at bedside who is requesting Board and Care Placement. Per [facility], she is able to accept patient today. Board and Care [address] [address]. Contact: Joyce [phone]. Pt agreeable to DCP. MATT Fernandez CM provided auth# [id number] for ambulance transportation for any available transport company. Info relayed to ER who will set up transportation once patient is ready.
--- NOTE | 2020-12-02 18:45 | NUR ---
IV removed. Catheter intact and site benign. Pressure and 4x4 applied to site. No bleeding noted.
--- NOTE | 2020-12-02 18:47 | NUR ---
REPORT GIVEN TO [facility] FOR PT [facility]SFER [facility].
[2020-12-02 18:58] VITALS: BP 125/75
== END 2020-12-02 18:59 | disposition home or self-care (01) ==
LOC: ER 11:04
DX: G89.29 Other chronic pain (principal); M79.662 Pain in left lower leg; M79.661 Pain in right lower leg; E11.9 Type 2 diabetes mellitus without complications; F20.9 Schizophrenia, unspecified; F60.3 Borderline personality disorder
CPT/HCPCS: 36415; 80048; 80076; 80299; 80307; 80320; 81001; 85025; 87081; 87086; 87426; 99285; C9803; G0480

== ENCOUNTER 2022-01-13 02:32 | Emergency (ER) | payer MEDICAID ==
[~2022-01-13] VITALS: Ht 165.1 cm; Wt 64.9 kg
--- NOTE | 2022-01-13 02:35 | NUR ---
BIBRA 839 FROM [employer]RON'S RESTAURANT FOR C/O CHRONIC BODY PAIN
[2022-01-13] MEDS ORDERED: ACETAMINOPHEN 325 MG TABLET PO ONE (03:00)
[2022-01-13] MEDS ORDERED: ACETAMINOPHEN 325 MG TABLET ONE (03:00)
--- NOTE | 2022-01-13 03:10 | NUR ---
Patient discharged to home in stable condition. Written and verbal after care instructions given. Patient verbalizes understanding of instruction.
[2022-01-13 03:11] VITALS: BP 136/70
== END 2022-01-13 03:11 | disposition home or self-care (01) ==
LOC: ER 02:34
DX: G89.21 Chronic pain due to trauma (principal); M79.10 Myalgia, unspecified site; F20.9 Schizophrenia, unspecified; E11.9 Type 2 diabetes mellitus without complications; F17.200 Nicotine dependence, unspecified, uncomplicated; Z88.8 Allergy status to other drugs, medicaments and biological substances

== ENCOUNTER 2022-03-14 02:17 | Emergency (ER) | payer MEDICAID ==
[~2022-03-14] VITALS: Ht 165.1 cm; Wt 70.3 kg
--- NOTE | 2022-03-14 03:50 | NUR ---
CALLED TO TRIAGE NO ANSWER
--- NOTE | 2022-03-14 04:35 | NUR ---
PT CALLED TO TRIAGE
[2022-03-14 04:59] VITALS: BP 129/66
--- NOTE | 2022-03-14 05:01 | NUR ---
PT DOES NOT WANT TO BE SEEN BE ER MD. ASKING FOR MED TEACHING ON PRESCRIPTIONS.
== END 2022-03-14 05:08 | disposition left against medical advice (07) ==
LOC: ER 02:22
DX: Z53.21 Procedure and treatment not carried out due to patient leaving prior to being seen by health care provider (principal)

== ENCOUNTER 2022-05-20 18:40 | Emergency (ER) | payer MEDICARE, BC ==
[~2022-05-20] VITALS: Ht 165.1 cm; Wt 71.7 kg
[2022-05-20] MEDS ORDERED: IBUPROFEN 600 MG TABLET ONE (19:29)
[2022-05-20] MEDS ORDERED: IBUPROFEN 600 MG TABLET PO ONE (19:30)
[2022-05-20] MEDS ORDERED: IBUP-1955 PO (19:45)
--- NOTE | 2022-05-20 19:54 | NUR ---
Patient discharged to home in stable condition. Written and verbal after care instructions given. Patient verbalizes understanding of instruction.
--- NOTE | 2022-05-20 20:00 | NUR ---
PROVIDED PATIENT WITH SOCKS
[2022-05-20 20:23] VITALS: BP 112/60
== END 2022-05-20 20:23 | disposition home or self-care (01) ==
LOC: ER 18:43
DX: M79.672 Pain in left foot (principal); I10 Essential (primary) hypertension; E11.9 Type 2 diabetes mellitus without complications; F20.9 Schizophrenia, unspecified; F17.200 Nicotine dependence, unspecified, uncomplicated; Z88.8 Allergy status to other drugs, medicaments and biological substances
CPT/HCPCS: 73630-TC

== ENCOUNTER 2022-05-30 03:05 | Emergency (ER) | payer MEDICARE, BC ==
[~2022-05-30] VITALS: Ht 170.2 cm; Wt 68.0 kg
[~2022-05-30 03:05] MED LIST changes: -ACET-868 PO; -BISA5TAB10 PO; -DOCU-141 PO; -DULO60CA45 PO; -HYDR-4384 PO; +IBUP-1955 PO
[2022-05-30 03:13] VITALS: BP 149/63
--- NOTE | 2022-05-30 03:21 | NUR ---
Patient discharged to home in stable condition. Written and verbal after care instructions given. Patient verbalizes understanding of instruction. Pt ambulatory with a steady gait
== END 2022-05-30 03:33 | disposition home or self-care (01) ==
LOC: ER 03:12
DX: S40.861A Insect bite (nonvenomous) of right upper arm, initial encounter (principal); S20.469A Insect bite (nonvenomous) of unspecified back wall of thorax, initial encounter; I10 Essential (primary) hypertension; E11.9 Type 2 diabetes mellitus without complications; F20.9 Schizophrenia, unspecified; F17.200 Nicotine dependence, unspecified, uncomplicated; Z88.8 Allergy status to other drugs, medicaments and biological substances; W57.XXXA Bitten or stung by nonvenomous insect and other nonvenomous arthropods, initial encounter; Y93.89 Activity, other specified; Y92.89 Other specified places as the place of occurrence of the external cause; Y99.8 Other external cause status

== ENCOUNTER 2022-08-18 13:24 | Emergency (ER) | payer MEDICARE, BC ==
[~2022-08-18] VITALS: Ht 162.6 cm; Wt 64.9 kg
--- NOTE | 2022-08-18 13:40 | NUR ---
BIB RA 878,C/O LEFT PELVIC PAIN, S/P GLF LAST NIGHT,AMBULATORY ON SCENE
--- NOTE | 2022-08-18 14:30 | NUR ---
DR LOMAX AT BEDSIDE FOR EVAL
--- NOTE | 2022-08-18 14:30 | NUR ---
Danyel laughlin in [facility] - 08/18/22 at 1431 by J CARLOS md at bed side for eval
--- NOTE | 2022-08-18 14:38 | NUR ---
RADIO COMMUNICATIONS SUPERINTENDENT AT BEDSIDE FOR XRAY
[2022-08-18] MEDS ORDERED: HYDROCODONE/APAP 5/325MG TABLET PO ONE (15:00)
[2022-08-18] MEDS ORDERED: HYDROCODONE/APAP 5/325MG TABLET ONE (15:01)
[2022-08-18] MEDS ORDERED: IBUP-1953 PO (15:46)
--- NOTE | 2022-08-18 16:42 | NUR ---
Patient discharged to home in stable condition. Written and verbal after care instructions given. Patient verbalizes understanding of instruction.
[2022-08-18 16:43] VITALS: BP 130/75
== END 2022-08-18 16:44 | disposition home or self-care (01) ==
LOC: ER 13:26
DX: S70.02XA Contusion of left hip, initial encounter (principal); I10 Essential (primary) hypertension; E11.9 Type 2 diabetes mellitus without complications; F20.9 Schizophrenia, unspecified; Z88.8 Allergy status to other drugs, medicaments and biological substances; F17.200 Nicotine dependence, unspecified, uncomplicated; Z79.1 Long term (current) use of non-steroidal anti-inflammatories (NSAID); W01.0XXA Fall on same level from slipping, tripping and stumbling without subsequent striking against object, initial encounter; Y93.89 Activity, other specified; Y92.89 Other specified places as the place of occurrence of the external cause; Y99.8 Other external cause status
CPT/HCPCS: 73502

== ENCOUNTER 2023-07-18 02:20 | Emergency (ER) | payer MEDICARE, BC ==
[~2023-07-18] VITALS: Ht 167.6 cm; Wt 72.6 kg
[~2023-07-18 02:20] MED LIST changes: +IBUP-1953 PO
[2023-07-18 03:23] LABS: BASOPHILS % (AUTO) 0.9 % (0.0-2.0); EOSINOPHILS # (AUTO) 0.3 K/uL (0.0-0.7); EOSINOPHILS % (AUTO) 15.7 % (0.0-6.0); HEMATOCRIT 35 % (33-45); HEMOGLOBIN 11.6 g/dL (11.5-14.8); LYMPHOCYTES # (AUTO) 0.6 K/uL (0.8-4.8); LYMPHOCYTES % (AUTO) 31.3 % (20.0-44.0); MEAN CORPUSCULAR HEMOGLOBIN 28 PG (26.0-33.0); MEAN CORPUSCULAR HGB CONC 33 g/dl (31.0-36.0); MEAN CORPUSCULAR VOLUME 85 fL (82-100); MONOCYTES # (AUTO) 0.3 K/uL (0.1-1.30); NEUTROPHILS # (AUTO) 0.8 K/uL (1.8-8.9); NEUTROPHILS % (AUTO) 37.1 % (43.0-81.0); PLATELET COUNT (AUTO) 234 K/uL (150-450); RED BLOOD CELL COUNT(AUTO) 4.11 MIL/uL (4.0-5.2); RED CELL DISTRIBUTION WIDTH 17.3 % (11.5-15.0)
[2023-07-18 03:27] LABS: CALCIUM, SERUM 8.6 mg/dL (8.5-10.1); CARBON DIOXIDE 29 mmol/L (21-32); CHLORIDE 103 mmol/L (98-107); CREATININE 0.7 mg/dL (0.6-1.3); GLUCOSE 141 mg/dL (74-106); POTASSIUM 3.5 mmol/L (3.5-5.1); SODIUM SERUM 140 mmol/L (136-145); UREA NITROGEN, BLOOD 17 mg/dL (7-18)
[2023-07-18 04:25] LABS: BAND % (MANUAL) 1 % (0.0-5.0); EOSINOPHILS % (MANUAL) 16 % (0-4); LYMPHOCYTES % (MANUAL) 30 % (16-48); MONOCYTES % (MANUAL) 10 % (0-11.0); NEUTROPHILS % (MANUAL) 43 (42-76); PLATELET ESTIMATE ADEQUATE
[2023-07-18] MEDS ORDERED: ACETAMINOPHEN 325 MG TABLET PO ONE (08:00)
[2023-07-18 08:36] VITALS: BP 118/77; TEMP 98; O2SAT 98
[2023-07-19] MEDS ORDERED: TYL2T PO (03:22)
== END 2023-07-18 08:37 | disposition home or self-care (01) ==
LOC: ER 02:21
DX: M79.605 Pain in left leg (principal); M79.604 Pain in right leg; I10 Essential (primary) hypertension; E11.9 Type 2 diabetes mellitus without complications; F20.9 Schizophrenia, unspecified; F17.200 Nicotine dependence, unspecified, uncomplicated; Z79.899 Other long term (current) drug therapy; Z59.00 Homelessness unspecified; Z88.1 Allergy status to other antibiotic agents
CPT/HCPCS: 36415; 71045-TC; 80048-TC; 84484-TC; 85025-TC; 93970-TC

== ENCOUNTER 2023-07-19 01:36 | Emergency (ER) | payer MEDICARE, BC ==
[~2023-07-19] VITALS: Ht 167.6 cm; Wt 72.6 kg
[2023-07-19] MEDS ORDERED: ACETAMINOPHEN 325 MG TABLET ONE (01:53)
[2023-07-19] MEDS ORDERED: ACETAMINOPHEN 325 MG TABLET PO ONE (02:00)
[2023-07-19 03:14] LABS: APPEARANCE,URINE CLEAR (CLEAR); BILIRUBIN,URINE NEGATIVE (NEGATIVE); BLOOD, URINE TRACE-INTA Ery/uL (NEGATIVE); COLOR,URINE YELLOW (YELLOW); KETONES,URINE TRACE mg/dL (NEGATIVE); LEUKOCYTE ESTERASE ,URINE NEGATIVE (NEGATIVE); NITRITE, URINE NEGATIVE (NEGATIVE); PROTEIN,URINE NEGATIVE (NEGATIVE); UGLUCOSE NEGATIVE (NEGATIVE); UROBILINOGEN,URINE 0.2 EU/dL (0.2)
[2023-07-19] MEDS ORDERED: TYL2T PO (03:22)
[2023-07-19 03:39] VITALS: BP 139/72; TEMP 98; O2SAT 99
[2023-07-19 03:41] LABS: ADD URINE CULTURE NO; BACTERIA,URINE Few /HPF (None Seen); WBC,URINE 0-2 /HPF (0-3)
== END 2023-07-19 03:39 | disposition home or self-care (01) ==
LOC: ER 01:38
DX: M79.10 Myalgia, unspecified site (principal); I10 Essential (primary) hypertension; E11.9 Type 2 diabetes mellitus without complications; F20.9 Schizophrenia, unspecified; F17.200 Nicotine dependence, unspecified, uncomplicated; Z79.899 Other long term (current) drug therapy; Z59.00 Homelessness unspecified; Z88.1 Allergy status to other antibiotic agents
CPT/HCPCS: 81001

== ENCOUNTER 2023-07-26 20:32 | Emergency (ER) | payer MEDICARE, BC ==
[~2023-07-26] VITALS: Ht 160 cm; Wt 62.1 kg
[~2023-07-26 20:32] MED LIST changes: +TYL2T PO
[2023-07-26] MEDS ORDERED: ACETAMINOPHEN ES 500 MG TABLET ONE (21:07)
[2023-07-26] MEDS ORDERED: ACETAMINOPHEN ES 500 MG TABLET PO ONE (21:30)
[2023-07-26 23:48] VITALS: BP 136/66; TEMP 98.3; O2SAT 98
== END 2023-07-26 23:48 | disposition home or self-care (01) ==
LOC: ER 20:33
DX: G89.29 Other chronic pain (principal); I10 Essential (primary) hypertension; E11.9 Type 2 diabetes mellitus without complications; F20.9 Schizophrenia, unspecified; F17.200 Nicotine dependence, unspecified, uncomplicated; Z79.899 Other long term (current) drug therapy; Z59.00 Homelessness unspecified; Z88.1 Allergy status to other antibiotic agents
CPT/HCPCS: 72131-TC